=== PATIENT | female | born 1955 | race Caucasian/White ===

== ENCOUNTER 2020-02-28 14:32 | Emergency (ER) | payer OTHER, SELFPAY ==
--- NOTE | ~2020-02-28 | XR_ITS ---
EXAMINATION: XR hip LT min 3V w AP pelvis EXAM DATE: 02/28/2020 16:18 INDICATION: Initial encounter following injury, with pain of the fall, left hip pain. TECHNIQUE: Left hip frontal, crosstable lateral and 'frog-leg' projections for interpretation. Fronta l projection pelvis. There is no prior study for comparison. FINDINGS: Patient has bilateral hip replacements. There are no acute pelvic, left hip fractures or di slocations identified. There is no subcutaneous gas. The soft tissue is unremarkable. No hardware fracture or evidence of loosening. IMPRESSION: Intact left hip arthroplasty. Reviewed, dictated and finalized at location A.
[2020-02-28 14:37] VITALS: BP 134/74; PULSE 80; RESP 18; TEMP 36.9; O2SAT 98
--- NOTE | 2020-02-28 15:52 | ED.FALL ---
HPI - Fall General Chief Complaint: Fall <DANIELLE Morelos Last Filed: 02/28/20 17:19> Stated Complaint: . <DANIELLE Morelos Last Filed: 02/28/20 17:19> Time Seen by Provider: 02/28/20 15:21 <DANIELLE Morelos Last Filed: 02/28/20 17:19> Source: patient <DANIELLE Morelos Last Filed: 02/28/20 17:19> Mode of arrival: wheelchair <DANIELLE Morelos Last Filed: 02/28/20 17:19> Limitations: no limitations <DANIELLE Morelos Last Filed: 02/28/20 17:19> History of Present Illness HPI Narrative: This is a 64 year old female that presents to the ER after a fall at work today. 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 Reports she tripped over carpet and fell and landed on her left hip. Reports some bruising to the area. Denies prodromal symptoms, hitting her head, loss of consciousness, vision changes, vomiting, numbness or weakness. <DANIELLE Morelos Last Filed: 02/28/20 17:19> Related Data Home Medications: Home Medications Medication Instructions Recorded Confirmed No Home Medications 02/28/20 02/28/20 <DANIELLE Morelos Last Filed: 02/28/20 17:19> Allergies/Adverse Reactions: Allergies Allergy/AdvReac Type Severity Reaction Status Date / Time acetaminophen Allergy Severe SOB Verified 02/28/20 14:45 mesalamine AdvReac Intermediate DISORIENTED, Verified 02/28/20 14:45 CONFUSED, NAUSEA PEROXIDE Allergy Intermediate SKIN Uncoded 02/28/20 14:45 BLISTERS <DANIELLE Morelos Last Filed: 02/28/20 17:19> Review of Systems Review of Systems: Narrative: CONSTITUTIONAL: Denies fever EYES: Denies visual changes GASTROINTESTINAL: Denies vomiting MUSCULOSKELETAL: Reports joint pain and myalgia. Denies back pain NEUROLOGIC: Denies numbness, or weakness. <DANIELLE Morelos Last Filed: 02/28/20 17:19> All systems reviewed & are unremarkable except as noted in HPI and below <Sarah Mclean PA-C - Last Filed: 02/28/20 17:19> [facility] Social History Social History: Social History (Updated 02/28/20 @ 15:52 by Sarah Mclean PA-C) Smoking status: Never smoker Substance use: never Gender identity (if verbalized by the patient): Female <Sarah Mclean PA-C - Last Filed: 02/28/20 17:19> Exam Narrative: Exam Narrative: GENERAL: Well-appearing, well-nourished, and in no acute distress. HEAD: Normocephalic, atraumatic. EYES: EOMI. NECK: Supple. No adenopathy or masses. No mildline spinal tenderness CHEST: Clear to auscultation. No respiratory distress. No wheezes rales or rhonchi HEART: Regular rate and rhythm. No murmur heard. Normal peripheral pulses. EXTREMITIES: Normal range of motion. Mild swelling and bruising to the left hip. No obvious deformities. SKIN: Warm, dry, no rash. NEURO: No focal deficits. Alert and oriented x3. PSYCH: Normal mood and affect <Sarah Mclean PA-C - Last Filed: 02/28/20 17:19> Course Vital Signs Vital signs: Vital Signs Temperature 98.5 F 02/28/20 14:37 Pulse Rate 80 02/28/20 14:37 Respiratory Rate 18 02/28/20 14:37 Blood Pressure 134/74 02/28/20 14:37 Pulse Oximetry 98 02/28/20 14:37 Temperature 98.5 F 02/28/20 14:37 Pulse Rate 76 02/28/20 16:53 Respiratory Rate 18 02/28/20 16:53 Blood Pressure 129/77 02/28/20 16:53 Pulse Oximetry 98 02/28/20 16:53 <Sarah Mclean PA-C - Last Filed: 02/28/20 17:19> Vital Signs Temperature 98.5 F 02/28/20 14:37 Pulse Rate 80 02/28/20 14:37 Respiratory Rate 18 02/28/20 14:37 Blood Pressure 134/74 02/28/20 14:37 Pulse Oximetry 98 02/28/20 14:37 Temperature 98.5 F 02/28/20 14:37 Pulse Rate 76 02/28/20 16:53 Respiratory Rate 18 02/28/20 16:53 Blood Pressure 129/77 02/28/20 16:53 Pulse Oximetry 98 02/28/20 16:53 <Rebecca Medrano MD - Last Filed: 02/28/20 19:58> MDM - Fall MDM Narrative Medical decision making narr
--- NOTE | 2020-02-28 16:10 | PC.NURSE ---
ice pack to lateral lt thigh area. bruising and swelling now visible
[2020-02-28 16:53] VITALS: BP 129/77; PULSE 76; RESP 18; O2SAT 98
== END 2020-02-28 17:37 | disposition home or self-care (01) ==
PROVIDERS: Emergency Provider Emergency Medicine; PCP Family Medicine
DX: S70.02XA Contusion of left hip, initial encounter (principal); W18.09XA Striking against other object with subsequent fall, initial encounter
CPT/HCPCS: 73502; 99283